=== PATIENT | male | born 1970 | race Caucasian/White ===

== ENCOUNTER 2018-10-14 15:47 | Emergency (ER) | payer BC, OTHER ==
--- NOTE | 2018-10-14 16:48 | EDPHY ---
H & P Time Seen by Provider: 10/14/18 16:10 HPI/ROS: This patient sustained a laceration to his left 5th finger while chopping vegetables at home preparing dinner shortly prior to arrival. He reports mild to moderate pain to the distal 5th finger tip with mild bleeding. He denies any other complaints. The bleeding slowed with direct pressure applied prior to arrival. ROS: Neuro: No numbness or tingling Musculoskeletal: No bony pain or difficulty moving the affected finger 5 point review of symptoms is performed and otherwise negative with exception of pertinent positives and negatives listed in HPI and ROS Past Medical/Surgical History: Otherwise healthy with immunizations up today Smoking Status: Never smoked Physical Exam: Physical Exam Vital signs are normal. General: No acute distress Eyes: Pupils equal and react to light. Extraocular motions are intact. Lungs: No respiratory distress. Cardiac: Brisk capillary refill is intact throughout. Skin: No rash or pallor. Extremities: Atraumatic normal except for 5th finger with a 1.3 cm full- thickness laceration with mild bleeding. No bony exposure when the wound is open. Subcutaneous tissues evident with no gross contamination. No bony tenderness. No difficulty moving the finger Neuro: Alert and oriented x3 with no sensorimotor deficits to the affected digit Constitutional: Initial Vital Signs Temperature (C) 36.9 C 10/14/18 15:56 Heart Rate 74 10/14/18 15:56 Respiratory Rate 18 10/14/18 15:56 Blood Pressure 143/93 H 10/14/18 15:56 O2 Sat (%) 93 10/14/18 15:56 O2 Delivery Mode Room Air Allergies/Adverse Reactions: No Known Allergies Allergy (Unverified 10/14/18 15:59) Home Medications: Medication Instructions Recorded NK [No Known Home Meds] 10/14/18 MDM/Departure - MDM Procedures: Digital block: After verbal consent, using a 50 50 mix of 0.5% Marcaine 2% plain lidocaine, 27 gauge needle, chlorhexidine scrub under sterile conditions- 3 injections were administered to the base of the affected finger, 8 mL with good effect. Patient tolerated this well. There were no complications. The wound is 8 mm, full-thickness to the tip of the finger. The wound was copiously irrigated with saline. The wound was explored for foreign bodies and none were found. The wound was prepped and draped in the normal sterile fashion. The edges were reapproximated using 4 0 Prolene -5 running sutures with good hemostasis and cosmesis. The patient tolerated the procedure well. Procedures performed by myself. There were no complications ED Course/Re-evaluation: Bacitracin and tube gauze applied by our tech. We counseled patient regarding wound care Discussion: Simple finger laceration without neurovascular compromise or other red flag findings. - Depart Disposition: Home, Routine, Self-Care Clinical Impression: Laceration Finger laceration Qualifiers: Encounter type: initial encounter Finger: little finger Damage to nail status: without damage Foreign body presence: without foreign body Laterality: left Qualified Code(s): S61.217A - Laceration without foreign body of left little finger without damage to nail, initial encounter Condition: Good Instructions: Finger Laceration (ED) Additional Instructions: Diagnosis: Finger laceration Plan: Keep the wound clean and dry for the next 2 days. Then clean it daily with warm soapy water Return for suture removal in 10-12 days. Return sooner if you develops redness, discharge or other concerns for infection. Referrals: NONE *PRIMARY CARE P,. [Unknown] - As per Instructions Khris Robertson MD [[facility] Primary Care Provider] - As per Instructions
[2018-10-14 17:58] VITALS: BP 137/90
== END 2018-10-14 17:50 | disposition home or self-care (01) ==
LOC: CED 15:47
PROC: 0HQGXZZ Repair Left Hand Skin, External Approach (ICD-10-PCS; principal; 2018-10-14)
DX: S61.217A Laceration without foreign body of left little finger without damage to nail, initial encounter (principal); W26.0XXA Contact with knife, initial encounter; Y93.G1 Activity, food preparation and clean up; Y92.009 Unspecified place in unspecified non-institutional (private) residence as the place of occurrence of the external cause
CPT/HCPCS: 99283-ER